=== PATIENT | female | born 1945 | race Caucasian/White ===

== ENCOUNTER 2016-10-19 20:37 | Inpatient (IN) | payer OTHER ==
[~2016-10-19] VITALS: Ht 170.2 cm; Wt 132.9 kg
[2016-10-19] MEDS ORDERED: DUONEB INH ONE ×2 (23:02)
[2016-10-19] MEDS ORDERED: NEB-XOPENEX 0.63 MG/3 ML INH PRN (23:35)
[2016-10-20] VITALS (8 sets, daily range): BP systolic 104–146; RESP 18–24; TEMP 98–99.6; Ht 170.2 cm; Wt 132.9 kg
[2016-10-20] MEDS: METHYLPRED SOD SUCC 125 MG/2 ML VIAL IV SCH ×3 (02:40→15:35)
[2016-10-20] MEDS: ACETAMINOPHEN 325 MG TAB PO PRN ×3 (02:41→21:41)
[2016-10-20] MEDS: DUONEB INH SCH ×6 (02:47→23:17)
[2016-10-20] MEDS: DIAZEPAM 5 MG TAB PO PRN ×2 (03:35→15:41)
[2016-10-20] MEDS: PREGABALIN 75 MG CAP PO SCH ×2 (09:05→20:00)
[2016-10-20] MEDS: CEFTRIAXONE 1 GM in SODIUM CHLORIDE 0.9% 50 ML IV SCH (09:05)
[2016-10-20] MEDS ORDERED: ALBUTEROL IH SCH (10:10)
[2016-10-20] MEDS: ENOXAPARIN 30 MG/0.3 ML SYR SUBQ SCH (10:55)
[2016-10-20] MEDS: AZITHROMYCIN 500 MG in SODIUM CHLORIDE 0.9% 250 ML IV SCH (11:25)
[2016-10-20] MEDS: DULoxetine 30 MG CAP PO SCH (15:35)
[2016-10-20] MEDS: FLUTICASONE 0.05% NA BTL NARE EACH SCH (15:35)
[2016-10-20] MEDS: PANTOPRAZOLE 40 MG TAB PO SCH (15:35)
[2016-10-20] MEDS: LEVOTHYROXINE 0.125 MG TAB PO SCH (15:35)
[2016-10-20] MEDS: CHOLECALCIFEROL 1,000 UNITS TAB PO SCH (15:35)
[2016-10-20] MEDS: CETIRIZINE 10 MG TAB PO SCH (15:35)
[2016-10-20] MEDS: BUPROPION XL 150 MG TAB PO SCH (15:35)
[2016-10-20] MEDS: ALLOPURINOL 100 MG TAB PO SCH (15:35)
[2016-10-20] MEDS: ATENOLOL 50 MG TAB PO SCH (19:59)
[2016-10-20] MEDS: MONTELUKAST 10 MG TAB PO SCH (19:59)
[2016-10-20] MEDS: Ascorbic Acid 500 MG TAB PO SCH (19:59)
[2016-10-20] MEDS: CLOBETASOL 0.05% CREAM 15 GM TOPICAL SCH (20:00)
[2016-10-21] MEDS: METHYLPRED SOD SUCC 125 MG/2 ML VIAL IV SCH ×4 (02:25→21:49)
[2016-10-21] MEDS: ACETAMINOPHEN 325 MG TAB PO PRN ×2 (02:26→07:45)
[2016-10-21] MEDS: DIAZEPAM 5 MG TAB PO PRN ×3 (02:26→21:49)
[2016-10-21] MEDS: DUONEB INH SCH ×6 (03:00→23:03)
[2016-10-21 03:57] VITALS: BP_SYST 136; RESP 16; TEMP 98.6
[2016-10-21] MEDS: PANTOPRAZOLE 40 MG TAB PO SCH (06:03)
[2016-10-21] MEDS: LEVOTHYROXINE 0.125 MG TAB PO SCH (06:04)
[2016-10-21] MEDS ORDERED: LEVOTHYROXINE 0.125 MG TAB PO SCH (07:00)
[2016-10-21] MEDS ORDERED: PANTOPRAZOLE 40 MG TAB PO SCH ×2 (07:00→09:00)
[2016-10-21 07:33] VITALS: BP_SYST 154; RESP 16; TEMP 98.5
[2016-10-21] MEDS: FLUTICASONE 0.05% NA BTL NARE EACH SCH (08:40)
[2016-10-21] MEDS: Ascorbic Acid 500 MG TAB PO SCH ×2 (08:41→21:48)
[2016-10-21] MEDS: CYCLOSPORINE OP SOLN EYE EACH PRN (08:41)
[2016-10-21] MEDS: CHOLECALCIFEROL 1,000 UNITS TAB PO SCH (08:41)
[2016-10-21] MEDS: ATENOLOL 50 MG TAB PO SCH ×2 (08:41→21:47)
[2016-10-21] MEDS: CEFTRIAXONE 1 GM in SODIUM CHLORIDE 0.9% 50 ML IV SCH (08:41)
[2016-10-21] MEDS: CETIRIZINE 10 MG TAB PO SCH (08:42)
[2016-10-21] MEDS: DULoxetine 30 MG CAP PO SCH (08:42)
[2016-10-21] MEDS: ALLOPURINOL 100 MG TAB PO SCH (08:42)
[2016-10-21] MEDS: BUPROPION XL 150 MG TAB PO SCH (08:42)
[2016-10-21] MEDS: ENOXAPARIN 30 MG/0.3 ML SYR SUBQ SCH (08:43)
[2016-10-21] MEDS: PREGABALIN 75 MG CAP PO SCH ×2 (08:44→21:48)
[2016-10-21] MEDS: CLOBETASOL 0.05% CREAM 15 GM TOPICAL SCH ×2 (08:44→21:00)
[2016-10-21] MEDS ORDERED: CHOLECALCIFEROL 1,000 UNITS TAB PO SCH (09:00)
[2016-10-21] MEDS ORDERED: FLUTICASONE 0.05% NA BTL NARE EACH SCH (09:00)
[2016-10-21] MEDS ORDERED: DULoxetine 30 MG CAP PO SCH (09:00)
[2016-10-21] MEDS ORDERED: ALLOPURINOL 100 MG TAB PO SCH (09:00)
[2016-10-21] MEDS ORDERED: BUPROPION XL 150 MG TAB PO SCH (09:00)
[2016-10-21] MEDS ORDERED: CETIRIZINE 10 MG TAB PO SCH (09:00)
[2016-10-21] MEDS: AZITHROMYCIN 500 MG in SODIUM CHLORIDE 0.9% 250 ML IV SCH (09:58)
[2016-10-21 10:56] VITALS: BP_SYST 173; RESP 16; TEMP 98.1
[2016-10-21] MEDS ORDERED: DEXTROSE 50% SYRINGE 50 ML IV PRN (13:20)
[2016-10-21] MEDS ORDERED: GLUCAGON 1 MG VIAL IM PRN (13:20)
[2016-10-21] MEDS ORDERED: PHARMACY TO DOSE VANCOMYCIN IV SCH (13:20)
[2016-10-21] MEDS: LEVEMIR INSULIN SUBQ SCH ×2 (13:26→21:48)
[2016-10-21] MEDS ORDERED: VANCOMYCIN 2,500 MG in SODIUM CHLORIDE 0.9% 500 ML IV STA (13:55)
[2016-10-21 15:23] VITALS: BP_SYST 150; BP_SYST 154; RESP 20; TEMP 98
[2016-10-21] MEDS ORDERED: MISSING DOSE XX ONE ×2 (15:40→20:50)
[2016-10-21 19:20] VITALS: BP_SYST 128; RESP 18; TEMP 97.4
[2016-10-21] MEDS: MONTELUKAST 10 MG TAB PO SCH (21:48)
[2016-10-21 23:20] VITALS: BP_SYST 160; RESP 19; TEMP 97.5
[2016-10-22] VITALS (7 sets, daily range): BP systolic 130–162; RESP 18–20; TEMP 97–98.3
[2016-10-22] MEDS: ACETAMINOPHEN 325 MG TAB PO PRN ×3 (01:17→21:25)
[2016-10-22] MEDS: DUONEB INH SCH ×6 (02:39→23:55)
[2016-10-22] MEDS: VANCOMYCIN 2,000 MG in SODIUM CHLORIDE 0.9% 500 ML IV SCH ×2 (02:42→15:38)
[2016-10-22] MEDS: PANTOPRAZOLE 40 MG TAB PO SCH (06:35)
[2016-10-22] MEDS: LEVOTHYROXINE 0.125 MG TAB PO SCH (06:35)
[2016-10-22] MEDS: PREGABALIN 75 MG CAP PO SCH ×2 (08:59→21:25)
[2016-10-22] MEDS: CHOLECALCIFEROL 1,000 UNITS TAB PO SCH (08:59)
[2016-10-22] MEDS: CYCLOSPORINE OP SOLN EYE EACH PRN (08:59)
[2016-10-22] MEDS: DIAZEPAM 5 MG TAB PO PRN ×2 (08:59→21:25)
[2016-10-22] MEDS: ALLOPURINOL 100 MG TAB PO SCH (08:59)
[2016-10-22] MEDS: DULoxetine 30 MG CAP PO SCH (09:00)
[2016-10-22] MEDS: CETIRIZINE 10 MG TAB PO SCH (09:00)
[2016-10-22] MEDS: LEVEMIR INSULIN SUBQ SCH ×2 (09:01→21:26)
[2016-10-22] MEDS: SALINE FLUSH 10 ML FLUSH SCH ×2 (09:02→21:24)
[2016-10-22] MEDS: BUPROPION XL 150 MG TAB PO SCH (09:03)
[2016-10-22] MEDS: ENOXAPARIN 30 MG/0.3 ML SYR SUBQ SCH (09:03)
[2016-10-22] MEDS: METHYLPRED SOD SUCC 125 MG/2 ML VIAL IV SCH ×2 (09:04→17:42)
[2016-10-22] MEDS: CEFTRIAXONE 1 GM in SODIUM CHLORIDE 0.9% 50 ML IV SCH (09:04)
[2016-10-22] MEDS ORDERED: MISSING DOSE XX ONE (09:20)
[2016-10-22] MEDS: CLOBETASOL 0.05% CREAM 15 GM TOPICAL SCH ×2 (11:17→21:00)
[2016-10-22] MEDS: AZITHROMYCIN 500 MG in SODIUM CHLORIDE 0.9% 250 ML IV SCH (11:37)
[2016-10-22] MEDS: ATENOLOL 50 MG TAB PO SCH ×2 (11:38→21:25)
[2016-10-22] MEDS: FLUTICASONE 0.05% NA BTL NARE EACH SCH (11:38)
[2016-10-22] MEDS: Ascorbic Acid 500 MG TAB PO SCH ×2 (11:38→21:26)
[2016-10-22] MEDS: MONTELUKAST 10 MG TAB PO SCH (21:26)
[2016-10-22] MEDS: Furosemide 40 MG/4 ML VIAL IV SCH (21:38)
[2016-10-22] MEDS: NYSTATIN SUSP FOR CPD 120 ML, DIPHENHYDRAMINE (FOR COMPOUND) 120 ML, HYDROCORT SOD SUC ... SWISH.SWAL SCH ×3 (21:38)
[2016-10-22] MEDS: MICONAZOLE 2% PWD TOPICAL SCH (21:39)
[2016-10-23 02:16] VITALS: BP_SYST 160; RESP 20; TEMP 97.4
[2016-10-23] MEDS: VANCOMYCIN 2,000 MG in SODIUM CHLORIDE 0.9% 500 ML IV SCH ×2 (02:35→15:57)
[2016-10-23] MEDS: DUONEB INH SCH ×6 (03:00→22:43)
[2016-10-23] MEDS: LEVOTHYROXINE 0.125 MG TAB PO SCH (06:50)
[2016-10-23] MEDS: SODIUM CHLORIDE 0.9% FLUSH BAG 500 ML IV SCH (06:50)
[2016-10-23] MEDS: PANTOPRAZOLE 40 MG TAB PO SCH (06:50)
[2016-10-23 07:27] VITALS: BP_SYST 158; RESP 18; TEMP 97.6
[2016-10-23] MEDS ORDERED: METHYLPRED SOD SUCC 125 MG/2 ML VIAL IV SCH (09:00)
[2016-10-23] MEDS: SALINE FLUSH 10 ML FLUSH SCH ×2 (09:45→21:52)
[2016-10-23] MEDS: CEFTRIAXONE 1 GM in SODIUM CHLORIDE 0.9% 50 ML IV SCH (09:46)
[2016-10-23] MEDS: PREGABALIN 75 MG CAP PO SCH ×2 (09:47→21:51)
[2016-10-23] MEDS: Ascorbic Acid 500 MG TAB PO SCH ×2 (09:47→21:51)
[2016-10-23] MEDS: ALLOPURINOL 100 MG TAB PO SCH (09:48)
[2016-10-23] MEDS: CETIRIZINE 10 MG TAB PO SCH (09:48)
[2016-10-23] MEDS: DULoxetine 30 MG CAP PO SCH (09:48)
[2016-10-23] MEDS: BUPROPION XL 150 MG TAB PO SCH (09:48)
[2016-10-23] MEDS: Furosemide 40 MG/4 ML VIAL IV SCH (09:49)
[2016-10-23] MEDS: DIAZEPAM 5 MG TAB PO PRN ×2 (09:49→21:51)
[2016-10-23] MEDS: ATENOLOL 50 MG TAB PO SCH ×2 (09:50→21:51)
[2016-10-23] MEDS: LEVEMIR INSULIN SUBQ SCH ×2 (09:53→21:51)
[2016-10-23] MEDS: MICONAZOLE 2% PWD TOPICAL SCH ×2 (09:55→21:52)
[2016-10-23] MEDS: CLOBETASOL 0.05% CREAM 15 GM TOPICAL SCH ×2 (09:55→21:52)
[2016-10-23] MEDS: CHOLECALCIFEROL 1,000 UNITS TAB PO SCH (09:55)
[2016-10-23] MEDS: ENOXAPARIN 30 MG/0.3 ML SYR SUBQ SCH (09:57)
[2016-10-23] MEDS: FLUTICASONE 0.05% NA BTL NARE EACH SCH (09:58)
[2016-10-23] MEDS: NYSTATIN SUSP FOR CPD 120 ML, DIPHENHYDRAMINE (FOR COMPOUND) 120 ML, HYDROCORT SOD SUC ... SWISH.SWAL SCH ×12 (10:06→21:49)
[2016-10-23 12:06] VITALS: BP_SYST 128; RESP 18; TEMP 97.8
[2016-10-23 15:35] VITALS: BP_SYST 146; RESP 20; TEMP 97.9
[2016-10-23 19:42] VITALS: BP_SYST 128; RESP 20; TEMP 98.8
[2016-10-23] MEDS: ACETAMINOPHEN 325 MG TAB PO PRN (21:51)
[2016-10-23] MEDS: MONTELUKAST 10 MG TAB PO SCH (21:51)
[2016-10-23 22:55] VITALS: BP_SYST 160; RESP 20; TEMP 98.4
[2016-10-24] MEDS: DUONEB INH SCH ×6 (02:57→23:11)
[2016-10-24 04:18] VITALS: BP_SYST 154; RESP 20; TEMP 98.2
[2016-10-24] MEDS: PANTOPRAZOLE 40 MG TAB PO SCH (06:11)
[2016-10-24] MEDS: LEVOTHYROXINE 0.125 MG TAB PO SCH (06:12)
[2016-10-24] MEDS: SODIUM CHLORIDE 0.9% FLUSH BAG 500 ML IV SCH (06:12)
[2016-10-24] MEDS: CEFTRIAXONE 1 GM in SODIUM CHLORIDE 0.9% 50 ML IV SCH (08:06)
[2016-10-24] MEDS: Furosemide 40 MG/4 ML VIAL IV SCH (08:06)
[2016-10-24] MEDS: SALINE FLUSH 10 ML FLUSH SCH ×2 (08:06→20:40)
[2016-10-24] MEDS: FLUTICASONE 0.05% NA BTL NARE EACH SCH (08:07)
[2016-10-24] MEDS: DULoxetine 30 MG CAP PO SCH (08:07)
[2016-10-24] MEDS: ENOXAPARIN 30 MG/0.3 ML SYR SUBQ SCH (08:07)
[2016-10-24] MEDS: PREGABALIN 75 MG CAP PO SCH ×2 (08:08→20:40)
[2016-10-24] MEDS: Ascorbic Acid 500 MG TAB PO SCH ×2 (08:08→20:42)
[2016-10-24] MEDS: BUPROPION XL 150 MG TAB PO SCH (08:08)
[2016-10-24] MEDS: CHOLECALCIFEROL 1,000 UNITS TAB PO SCH (08:08)
[2016-10-24] MEDS: ALLOPURINOL 100 MG TAB PO SCH (08:08)
[2016-10-24] MEDS: MICONAZOLE 2% PWD TOPICAL SCH ×2 (08:09→20:43)
[2016-10-24 08:28] VITALS: BP_SYST 120; RESP 18; TEMP 97.1
[2016-10-24] MEDS: DIAZEPAM 5 MG TAB PO PRN ×2 (08:52→20:43)
[2016-10-24] MEDS: LEVEMIR INSULIN SUBQ SCH ×2 (08:53→20:44)
[2016-10-24] MEDS: NYSTATIN SUSP FOR CPD 120 ML, DIPHENHYDRAMINE (FOR COMPOUND) 120 ML, HYDROCORT SOD SUC ... SWISH.SWAL SCH ×12 (09:00→20:42)
[2016-10-24] MEDS ORDERED: MISSING DOSE XX ONE (10:35)
[2016-10-24] MEDS: ATENOLOL 50 MG TAB PO SCH ×2 (11:01→20:42)
[2016-10-24] MEDS: CETIRIZINE 10 MG TAB PO SCH (11:01)
[2016-10-24] MEDS: CLOBETASOL 0.05% CREAM 15 GM TOPICAL SCH ×2 (11:03→20:43)
[2016-10-24] MEDS: METHYLPRED SOD SUCC 40 MG VIAL IV SCH (11:03)
[2016-10-24 12:16] VITALS: BP_SYST 119; RESP 18; TEMP 98.5
[2016-10-24] MEDS: ACETAMINOPHEN 325 MG TAB PO PRN (16:03)
[2016-10-24 16:14] VITALS: BP_SYST 130; RESP 18; TEMP 97.3
[2016-10-24] MEDS: VANCOMYCIN 1,000 MG in SODIUM CHLORIDE 0.9% 250 ML IV SCH (17:36)
[2016-10-24] MEDS: KCL CR 8 MEQ TAB PO SCH ×2 (18:54→20:42)
[2016-10-24 20:22] VITALS: BP_SYST 138; RESP 18; TEMP 97.7
[2016-10-24] MEDS: MONTELUKAST 10 MG TAB PO SCH (20:40)
[2016-10-24 23:56] VITALS: BP_SYST 130; RESP 18; TEMP 97
[2016-10-25] MEDS: DUONEB INH SCH ×6 (02:29→22:40)
[2016-10-25 03:07] VITALS: BP_SYST 142; RESP 18; TEMP 94
[2016-10-25] MEDS ORDERED: VANCOMYCIN 1,000 MG in SODIUM CHLORIDE 0.9% 250 ML IV SCH (05:00)
[2016-10-25] MEDS: VANCOMYCIN 1,000 MG in SODIUM CHLORIDE 0.9% 250 ML IV SCH ×2 (05:55→18:12)
[2016-10-25] MEDS: SODIUM CHLORIDE 0.9% FLUSH BAG 500 ML IV SCH (05:55)
[2016-10-25] MEDS: PANTOPRAZOLE 40 MG TAB PO SCH (05:56)
[2016-10-25] MEDS: LEVOTHYROXINE 0.125 MG TAB PO SCH (05:56)
[2016-10-25] MEDS: SALINE FLUSH 10 ML FLUSH SCH ×2 (08:00→21:23)
[2016-10-25 08:19] VITALS: BP_SYST 132; RESP 18; TEMP 97.6
[2016-10-25] MEDS ORDERED: LEVEMIR INSULIN SUBQ SCH (09:00)
[2016-10-25] MEDS: METHYLPRED SOD SUCC 40 MG VIAL IV SCH (09:00)
[2016-10-25] MEDS: DULoxetine 30 MG CAP PO SCH (10:29)
[2016-10-25] MEDS: ATENOLOL 50 MG TAB PO SCH ×2 (10:30→21:19)
[2016-10-25] MEDS: PREGABALIN 75 MG CAP PO SCH ×2 (10:30→21:19)
[2016-10-25] MEDS: BUPROPION XL 150 MG TAB PO SCH (10:30)
[2016-10-25] MEDS: FLUTICASONE 0.05% NA BTL NARE EACH SCH (10:30)
[2016-10-25] MEDS: PREDNISONE 20 MG TAB PO SCH (10:30)
[2016-10-25] MEDS: NYSTATIN SUSP FOR CPD 120 ML, DIPHENHYDRAMINE (FOR COMPOUND) 120 ML, HYDROCORT SOD SUC ... SWISH.SWAL SCH ×12 (10:31→21:19)
[2016-10-25] MEDS: ENOXAPARIN 30 MG/0.3 ML SYR SUBQ SCH (10:31)
[2016-10-25] MEDS: CLOBETASOL 0.05% CREAM 15 GM TOPICAL SCH ×2 (10:31→21:00)
[2016-10-25] MEDS: MICONAZOLE 2% PWD TOPICAL SCH ×2 (10:31→21:00)
[2016-10-25 11:19] VITALS: BP_SYST 136; RESP 18; TEMP 97.6
[2016-10-25] MEDS: DIAZEPAM 5 MG TAB PO PRN ×2 (11:27→21:38)
[2016-10-25] MEDS: ACETAMINOPHEN 325 MG TAB PO PRN ×2 (11:27→21:39)
[2016-10-25 16:30] VITALS: BP_SYST 128; RESP 18; TEMP 97.8
[2016-10-25 20:08] VITALS: BP_SYST 118; RESP 20; TEMP 97.9
[2016-10-25] MEDS: MONTELUKAST 10 MG TAB PO SCH (21:19)
[2016-10-25 23:43] VITALS: BP_SYST 160; RESP 20; TEMP 98
[2016-10-26 02:26] VITALS: BP_SYST 160; RESP 20; TEMP 98.1
[2016-10-26] MEDS: DUONEB INH SCH ×6 (03:14→22:58)
[2016-10-26] MEDS: SODIUM CHLORIDE 0.9% FLUSH BAG 500 ML IV SCH (03:35)
[2016-10-26] MEDS: PANTOPRAZOLE 40 MG TAB PO SCH (05:00)
[2016-10-26] MEDS: LEVOTHYROXINE 0.125 MG TAB PO SCH (05:00)
[2016-10-26] MEDS: VANCOMYCIN 1,000 MG in SODIUM CHLORIDE 0.9% 250 ML IV SCH (06:19)
[2016-10-26 07:28] VITALS: BP_SYST 116; RESP 20; TEMP 96.7
[2016-10-26] MEDS ORDERED: PREDNISONE 20 MG TAB PO SCH (09:00)
[2016-10-26] MEDS: SALINE FLUSH 10 ML FLUSH SCH ×2 (10:04→20:22)
[2016-10-26] MEDS: DULoxetine 30 MG CAP PO SCH (10:05)
[2016-10-26] MEDS: PREDNISONE 20 MG TAB PO SCH (10:05)
[2016-10-26] MEDS: ATENOLOL 50 MG TAB PO SCH ×2 (10:05→20:22)
[2016-10-26] MEDS: ENOXAPARIN 30 MG/0.3 ML SYR SUBQ SCH (10:05)
[2016-10-26] MEDS: BUPROPION XL 150 MG TAB PO SCH (10:05)
[2016-10-26] MEDS: MICONAZOLE 2% PWD TOPICAL SCH ×2 (10:06→20:24)
[2016-10-26] MEDS: PREGABALIN 75 MG CAP PO SCH ×2 (10:06→20:22)
[2016-10-26] MEDS: FLUTICASONE 0.05% NA BTL NARE EACH SCH (10:06)
[2016-10-26] MEDS: NYSTATIN SUSP FOR CPD 120 ML, DIPHENHYDRAMINE (FOR COMPOUND) 120 ML, HYDROCORT SOD SUC ... SWISH.SWAL SCH ×12 (10:06→20:24)
[2016-10-26] MEDS: CLOBETASOL 0.05% CREAM 15 GM TOPICAL SCH ×2 (10:06→20:23)
[2016-10-26] MEDS: DIAZEPAM 5 MG TAB PO PRN ×2 (10:10→20:23)
[2016-10-26 10:54] VITALS: BP_SYST 130; RESP 18; TEMP 97.9
[2016-10-26] MEDS: SODIUM CHLORIDE 0.9% 1,000 ML IV SCH (16:10)
[2016-10-26 16:17] VITALS: BP_SYST 134; RESP 18; TEMP 98.3
[2016-10-26 19:40] VITALS: BP_SYST 118; RESP 18; TEMP 97.3
[2016-10-26] MEDS: MONTELUKAST 10 MG TAB PO SCH (20:22)
[2016-10-26 23:18] VITALS: BP_SYST 128; RESP 18; TEMP 97.9
[2016-10-27 02:38] VITALS: BP_SYST 138; RESP 18; TEMP 97.8
[2016-10-27] MEDS: DUONEB INH SCH ×6 (03:03→22:46)
[2016-10-27] MEDS ORDERED: MISSING DOSE XX ONE (03:55)
[2016-10-27] MEDS: PANTOPRAZOLE 40 MG TAB PO SCH (05:47)
[2016-10-27] MEDS: LEVOTHYROXINE 0.125 MG TAB PO SCH (05:47)
[2016-10-27] MEDS: SODIUM CHLORIDE 0.9% 1,000 ML IV SCH (05:48)
[2016-10-27] MEDS: SODIUM CHLORIDE 0.9% FLUSH BAG 500 ML IV SCH (05:49)
[2016-10-27 07:58] VITALS: BP_SYST 130; RESP 16; TEMP 97.5
[2016-10-27] MEDS ORDERED: PREDNISONE 20 MG TAB PO SCH (09:00)
[2016-10-27] MEDS: CLOBETASOL 0.05% CREAM 15 GM TOPICAL SCH ×2 (09:00→20:38)
[2016-10-27] MEDS ORDERED: VANCOMYCIN 1,000 MG in SODIUM CHLORIDE 0.9% 250 ML IV SCH (09:00)
[2016-10-27] MEDS: SALINE FLUSH 10 ML FLUSH SCH ×2 (09:12→20:39)
[2016-10-27] MEDS: FLUTICASONE 0.05% NA BTL NARE EACH SCH (09:16)
[2016-10-27] MEDS: BUPROPION XL 150 MG TAB PO SCH (09:16)
[2016-10-27] MEDS: PREGABALIN 75 MG CAP PO SCH ×2 (09:16→20:40)
[2016-10-27] MEDS: DULoxetine 30 MG CAP PO SCH (09:16)
[2016-10-27] MEDS: ATENOLOL 50 MG TAB PO SCH ×2 (09:17→20:40)
[2016-10-27] MEDS: ENOXAPARIN 30 MG/0.3 ML SYR SUBQ SCH (09:18)
[2016-10-27] MEDS: NYSTATIN SUSP FOR CPD 120 ML, DIPHENHYDRAMINE (FOR COMPOUND) 120 ML, HYDROCORT SOD SUC ... SWISH.SWAL SCH ×12 (09:19→20:40)
[2016-10-27] MEDS: MICONAZOLE 2% PWD TOPICAL SCH ×2 (09:32→20:41)
[2016-10-27 11:45] VITALS: BP_SYST 128; RESP 20; TEMP 96
[2016-10-27] MEDS: DIAZEPAM 5 MG TAB PO PRN ×2 (12:31→20:39)
[2016-10-27 15:31] VITALS: BP_SYST 118; RESP 70; TEMP 97.4
[2016-10-27 19:37] VITALS: BP_SYST 106; RESP 18; TEMP 98.4
[2016-10-27] MEDS: MONTELUKAST 10 MG TAB PO SCH (20:39)
[2016-10-27 23:29] VITALS: BP_SYST 118; RESP 18; TEMP 97.4
[2016-10-28] MEDS: DUONEB INH SCH ×6 (02:27→23:09)
[2016-10-28 04:27] VITALS: BP_SYST 138; RESP 18; TEMP 96.8
[2016-10-28] MEDS: PANTOPRAZOLE 40 MG TAB PO SCH (05:54)
[2016-10-28] MEDS: LEVOTHYROXINE 0.125 MG TAB PO SCH (05:54)
[2016-10-28] MEDS: SODIUM CHLORIDE 0.9% FLUSH BAG 500 ML IV SCH (05:54)
[2016-10-28 08:17] VITALS: BP_SYST 124; RESP 20; TEMP 97.3
[2016-10-28] MEDS: DULoxetine 30 MG CAP PO SCH (08:51)
[2016-10-28] MEDS: FLUTICASONE 0.05% NA BTL NARE EACH SCH (08:51)
[2016-10-28] MEDS: BUPROPION XL 150 MG TAB PO SCH (08:52)
[2016-10-28] MEDS: PREGABALIN 75 MG CAP PO SCH ×2 (08:52→21:20)
[2016-10-28] MEDS: ATENOLOL 50 MG TAB PO SCH ×2 (08:52→21:20)
[2016-10-28] MEDS: PREDNISONE 10 MG TAB PO SCH (08:52)
[2016-10-28] MEDS: NYSTATIN SUSP FOR CPD 120 ML, DIPHENHYDRAMINE (FOR COMPOUND) 120 ML, HYDROCORT SOD SUC ... SWISH.SWAL SCH ×12 (08:53→21:00)
[2016-10-28] MEDS: ENOXAPARIN 30 MG/0.3 ML SYR SUBQ SCH (08:53)
[2016-10-28] MEDS: MICONAZOLE 2% PWD TOPICAL SCH ×2 (08:53→21:00)
[2016-10-28] MEDS: CLOBETASOL 0.05% CREAM 15 GM TOPICAL SCH ×2 (08:54→21:00)
[2016-10-28] MEDS: ACETAMINOPHEN 325 MG TAB PO PRN (10:43)
[2016-10-28] MEDS: DIAZEPAM 5 MG TAB PO PRN (10:44)
[2016-10-28 10:48] VITALS: BP_SYST 110; RESP 20; TEMP 97.6
[2016-10-28] MEDS: SALINE FLUSH 10 ML FLUSH SCH ×2 (12:58→21:21)
[2016-10-28] MEDS: VANCOMYCIN 1,000 MG in SODIUM CHLORIDE 0.9% 250 ML IV SCH (13:03)
[2016-10-28 16:04] VITALS: BP_SYST 118; RESP 16; TEMP 97.2
[2016-10-28 20:59] VITALS: BP_SYST 128; RESP 20; TEMP 97.7
[2016-10-28] MEDS: MONTELUKAST 10 MG TAB PO SCH (21:19)
[2016-10-28 23:59] VITALS: BP_SYST 124; RESP 18; TEMP 97.4
[2016-10-29] MEDS: DIAZEPAM 5 MG TAB PO PRN ×2 (00:05→08:33)
[2016-10-29] MEDS: DUONEB INH SCH ×6 (02:40→22:47)
[2016-10-29 03:56] VITALS: BP_SYST 130; RESP 16; TEMP 97.8
[2016-10-29] MEDS: PANTOPRAZOLE 40 MG TAB PO SCH (06:17)
[2016-10-29] MEDS: LEVOTHYROXINE 0.125 MG TAB PO SCH (06:17)
[2016-10-29] MEDS: SODIUM CHLORIDE 0.9% FLUSH BAG 500 ML IV SCH (06:17)
[2016-10-29] MEDS: BUPROPION XL 150 MG TAB PO SCH (08:21)
[2016-10-29] MEDS: PREDNISONE 10 MG TAB PO SCH (08:21)
[2016-10-29] MEDS: ATENOLOL 50 MG TAB PO SCH ×2 (08:22→20:58)
[2016-10-29] MEDS: ENOXAPARIN 30 MG/0.3 ML SYR SUBQ SCH (08:22)
[2016-10-29] MEDS: DULoxetine 30 MG CAP PO SCH (08:22)
[2016-10-29] MEDS: PREGABALIN 75 MG CAP PO SCH ×2 (08:22→20:58)
[2016-10-29] MEDS: NYSTATIN SUSP FOR CPD 120 ML, DIPHENHYDRAMINE (FOR COMPOUND) 120 ML, HYDROCORT SOD SUC ... SWISH.SWAL SCH ×12 (08:23→20:59)
[2016-10-29] MEDS: MICONAZOLE 2% PWD TOPICAL SCH ×2 (08:23→21:00)
[2016-10-29] MEDS: CLOBETASOL 0.05% CREAM 15 GM TOPICAL SCH ×2 (08:24→21:00)
[2016-10-29] MEDS: SALINE FLUSH 10 ML FLUSH SCH ×2 (08:25→20:58)
[2016-10-29] MEDS: FLUTICASONE 0.05% NA BTL NARE EACH SCH (08:25)
[2016-10-29 08:29] VITALS: BP_SYST 150; RESP 20; TEMP 97.3
[2016-10-29 12:22] VITALS: BP_SYST 130; RESP 20; TEMP 98
[2016-10-29] MEDS: VANCOMYCIN 1,000 MG in SODIUM CHLORIDE 0.9% 250 ML IV SCH (13:18)
[2016-10-29 16:41] VITALS: BP_SYST 105; RESP 20; TEMP 97.9
[2016-10-29 20:14] VITALS: BP_SYST 110; RESP 20; TEMP 97.6
[2016-10-29] MEDS: MONTELUKAST 10 MG TAB PO SCH (20:56)
[2016-10-30 00:58] VITALS: BP_SYST 124; RESP 20; TEMP 97.3
[2016-10-30] MEDS: DUONEB INH SCH ×5 (03:22→19:30)
[2016-10-30 04:38] VITALS: BP_SYST 118; RESP 20; TEMP 96
[2016-10-30] MEDS: ACETAMINOPHEN 325 MG TAB PO PRN ×2 (04:42→16:54)
[2016-10-30] MEDS: LEVOTHYROXINE 0.125 MG TAB PO SCH (06:21)
[2016-10-30] MEDS: SODIUM CHLORIDE 0.9% FLUSH BAG 500 ML IV SCH (06:21)
[2016-10-30] MEDS: PANTOPRAZOLE 40 MG TAB PO SCH (06:21)
[2016-10-30 07:58] VITALS: BP_SYST 122; RESP 20; TEMP 97.6
[2016-10-30] MEDS: MICONAZOLE 2% PWD TOPICAL SCH ×2 (09:00→20:59)
[2016-10-30] MEDS: CLOBETASOL 0.05% CREAM 15 GM TOPICAL SCH ×2 (09:00→20:59)
[2016-10-30] MEDS: PREGABALIN 75 MG CAP PO SCH ×2 (09:52→20:58)
[2016-10-30] MEDS: ATENOLOL 50 MG TAB PO SCH ×2 (09:52→20:58)
[2016-10-30] MEDS: DULoxetine 30 MG CAP PO SCH (09:52)
[2016-10-30] MEDS: BUPROPION XL 150 MG TAB PO SCH (09:52)
[2016-10-30] MEDS: PREDNISONE 10 MG TAB PO SCH (09:52)
[2016-10-30] MEDS: SALINE FLUSH 10 ML FLUSH SCH ×2 (09:53→21:03)
[2016-10-30] MEDS: ENOXAPARIN 30 MG/0.3 ML SYR SUBQ SCH (09:56)
[2016-10-30] MEDS: FLUTICASONE 0.05% NA BTL NARE EACH SCH (09:58)
[2016-10-30] MEDS: NYSTATIN SUSP FOR CPD 120 ML, DIPHENHYDRAMINE (FOR COMPOUND) 120 ML, HYDROCORT SOD SUC ... SWISH.SWAL SCH ×12 (09:58→20:59)
[2016-10-30] MEDS: DIAZEPAM 5 MG TAB PO PRN (10:02)
[2016-10-30 11:36] VITALS: BP_SYST 115; RESP 20; TEMP 97
[2016-10-30] MEDS: VANCOMYCIN 1,000 MG in SODIUM CHLORIDE 0.9% 250 ML IV SCH (13:31)
[2016-10-30 16:31] VITALS: BP_SYST 123; RESP 20; TEMP 97.7
[2016-10-30] MEDS: SALINE FLUSH 10 ML FLUSH PRN (16:54)
[2016-10-30 20:49] VITALS: BP_SYST 112; RESP 20; TEMP 97.6
[2016-10-30] MEDS: DIAZEPAM 5 MG TAB PO SCH (20:58)
[2016-10-30] MEDS: MONTELUKAST 10 MG TAB PO SCH (20:58)
[2016-10-31 00:43] VITALS: BP_SYST 120; RESP 20; TEMP 97.8
[2016-10-31 03:45] VITALS: BP_SYST 124; RESP 20; TEMP 98
[2016-10-31] MEDS: SODIUM CHLORIDE 0.9% FLUSH BAG 500 ML IV SCH (05:57)
[2016-10-31] MEDS: PANTOPRAZOLE 40 MG TAB PO SCH (06:10)
[2016-10-31] MEDS: DUONEB INH SCH ×5 (06:20→23:16)
[2016-10-31] MEDS: LEVOTHYROXINE 0.125 MG TAB PO SCH (06:56)
[2016-10-31 07:34] VITALS: BP_SYST 118; RESP 18; TEMP 97.8
[2016-10-31] MEDS: MICONAZOLE 2% PWD TOPICAL SCH ×2 (09:00→21:03)
[2016-10-31] MEDS: CLOBETASOL 0.05% CREAM 15 GM TOPICAL SCH ×2 (09:00→21:04)
[2016-10-31] MEDS: FLUTICASONE 0.05% NA BTL NARE EACH SCH (10:13)
[2016-10-31] MEDS: SALINE FLUSH 10 ML FLUSH SCH ×2 (10:13→21:02)
[2016-10-31] MEDS: DULoxetine 30 MG CAP PO SCH (10:14)
[2016-10-31] MEDS: ENOXAPARIN 30 MG/0.3 ML SYR SUBQ SCH (10:14)
[2016-10-31] MEDS: BUPROPION XL 150 MG TAB PO SCH (10:14)
[2016-10-31] MEDS: PREDNISONE 5 MG TAB PO SCH (10:15)
[2016-10-31] MEDS: PREGABALIN 75 MG CAP PO SCH ×2 (10:15→21:03)
[2016-10-31] MEDS: DIAZEPAM 5 MG TAB PO SCH ×2 (10:15→21:02)
[2016-10-31] MEDS: ATENOLOL 50 MG TAB PO SCH ×2 (10:15→21:07)
[2016-10-31] MEDS: NYSTATIN SUSP FOR CPD 120 ML, DIPHENHYDRAMINE (FOR COMPOUND) 120 ML, HYDROCORT SOD SUC ... SWISH.SWAL SCH ×12 (10:15→21:04)
[2016-10-31] MEDS: ACETAMINOPHEN 325 MG TAB PO PRN (10:17)
[2016-10-31 10:41] VITALS: BP_SYST 126; RESP 16; TEMP 97.6
[2016-10-31] MEDS: VANCOMYCIN 1,000 MG in SODIUM CHLORIDE 0.9% 250 ML IV SCH (13:21)
[2016-10-31] MEDS: SALINE FLUSH 10 ML FLUSH PRN (13:21)
[2016-10-31 15:21] VITALS: BP_SYST 118; RESP 20; TEMP 97.6
[2016-10-31] MEDS ORDERED: MISSING DOSE XX ONE (15:35)
[2016-10-31 19:55] VITALS: BP_SYST 110; RESP 18; TEMP 98.3
[2016-10-31] MEDS: MONTELUKAST 10 MG TAB PO SCH (21:03)
[2016-11-01 00:31] VITALS: BP_SYST 120; RESP 18; TEMP 98.1
[2016-11-01 05:02] VITALS: BP_SYST 112; RESP 20; TEMP 98.3
[2016-11-01] MEDS: LEVOTHYROXINE 0.125 MG TAB PO SCH (06:14)
[2016-11-01] MEDS: SODIUM CHLORIDE 0.9% FLUSH BAG 500 ML IV SCH (06:14)
[2016-11-01] MEDS: PANTOPRAZOLE 40 MG TAB PO SCH (06:14)
[2016-11-01] MEDS: DUONEB INH SCH ×3 (06:41→22:40)
[2016-11-01 07:43] VITALS: BP_SYST 118; RESP 18; TEMP 98.4
[2016-11-01] MEDS: DULoxetine 30 MG CAP PO SCH (10:35)
[2016-11-01] MEDS: ATENOLOL 50 MG TAB PO SCH ×2 (10:36→21:10)
[2016-11-01] MEDS: FLUTICASONE 0.05% NA BTL NARE EACH SCH (10:36)
[2016-11-01] MEDS: BUPROPION XL 150 MG TAB PO SCH (10:36)
[2016-11-01] MEDS: SALINE FLUSH 10 ML FLUSH SCH ×2 (10:36→21:10)
[2016-11-01] MEDS: DIAZEPAM 5 MG TAB PO SCH ×2 (10:36→21:10)
[2016-11-01] MEDS: PREDNISONE 5 MG TAB PO SCH (10:36)
[2016-11-01] MEDS: PREGABALIN 75 MG CAP PO SCH ×2 (10:36→21:10)
[2016-11-01] MEDS: ENOXAPARIN 30 MG/0.3 ML SYR SUBQ SCH (10:37)
[2016-11-01] MEDS: NYSTATIN SUSP FOR CPD 120 ML, DIPHENHYDRAMINE (FOR COMPOUND) 120 ML, HYDROCORT SOD SUC ... SWISH.SWAL SCH ×12 (10:37→21:12)
[2016-11-01] MEDS: CLOBETASOL 0.05% CREAM 15 GM TOPICAL SCH ×2 (10:38→21:12)
[2016-11-01] MEDS: MICONAZOLE 2% PWD TOPICAL SCH ×2 (10:38→21:12)
[2016-11-01 11:14] VITALS: BP_SYST 128; RESP 18; TEMP 97.6
[2016-11-01] MEDS: VANCOMYCIN 1,000 MG in SODIUM CHLORIDE 0.9% 250 ML IV SCH (12:44)
[2016-11-01] MEDS: SALINE FLUSH 10 ML FLUSH PRN (12:45)
[2016-11-01 16:05] VITALS: BP_SYST 128; RESP 18; TEMP 98.6
[2016-11-01 20:31] VITALS: BP_SYST 112; RESP 18; TEMP 98.1
[2016-11-01] MEDS: MONTELUKAST 10 MG TAB PO SCH (21:10)
[2016-11-02] VITALS (8 sets, daily range): BP systolic 114–126; RESP 16–20; TEMP 97.3–98.5
[2016-11-02] MEDS: ACETAMINOPHEN 325 MG TAB PO PRN ×2 (03:29→09:05)
[2016-11-02] MEDS: SODIUM CHLORIDE 0.9% FLUSH BAG 500 ML IV SCH (06:18)
[2016-11-02] MEDS: PANTOPRAZOLE 40 MG TAB PO SCH (06:18)
[2016-11-02] MEDS: LEVOTHYROXINE 0.125 MG TAB PO SCH (06:18)
[2016-11-02] MEDS: DUONEB INH SCH ×2 (07:34→14:48)
[2016-11-02] MEDS: ATENOLOL 50 MG TAB PO SCH (08:54)
[2016-11-02] MEDS: BUPROPION XL 150 MG TAB PO SCH (08:54)
[2016-11-02] MEDS: DULoxetine 30 MG CAP PO SCH (08:54)
[2016-11-02] MEDS: FLUTICASONE 0.05% NA BTL NARE EACH SCH (08:54)
[2016-11-02] MEDS: DIAZEPAM 5 MG TAB PO SCH (08:54)
[2016-11-02] MEDS: PREGABALIN 75 MG CAP PO SCH (08:54)
[2016-11-02] MEDS: SALINE FLUSH 10 ML FLUSH SCH (08:55)
[2016-11-02] MEDS: MICONAZOLE 2% PWD TOPICAL SCH (08:58)
[2016-11-02] MEDS: ENOXAPARIN 30 MG/0.3 ML SYR SUBQ SCH (08:58)
[2016-11-02] MEDS: NYSTATIN SUSP FOR CPD 120 ML, DIPHENHYDRAMINE (FOR COMPOUND) 120 ML, HYDROCORT SOD SUC ... SWISH.SWAL SCH ×6 (08:58→12:50)
[2016-11-02] MEDS: CLOBETASOL 0.05% CREAM 15 GM TOPICAL SCH (08:59)
[2016-11-02] MEDS: VANCOMYCIN 1,000 MG in SODIUM CHLORIDE 0.9% 250 ML IV SCH (12:44)
== END 2016-11-02 14:56 | disposition home or self-care (01) | DRG 190 ==
LOC: ENRESERVTM → ENRESERV → ENRESERVDT → ER 20:37 → ENPENDDIS 23:00 → EMR 23:00 → PCU2 10-20 01:11 → 4NT 10-21 14:41
PROVIDERS: ADMIT Internal Medicine; ATTEND Internal Medicine
DX: J44.0 Chronic obstructive pulmonary disease with (acute) lower respiratory infection (principal); I50.33 Acute on chronic diastolic (congestive) heart failure; J15.212 Pneumonia due to Methicillin resistant Staphylococcus aureus; N18.3 Chronic kidney disease, stage 3 (moderate); I13.0 Hypertensive heart and chronic kidney disease with heart failure and stage 1 through stage 4 chronic kidney disease, or unspecified chronic kidney disease; E87.1 Hypo-osmolality and hyponatremia; J44.1 Chronic obstructive pulmonary disease with (acute) exacerbation; E09.9 Drug or chemical induced diabetes mellitus without complications; T38.0X5A Adverse effect of glucocorticoids and synthetic analogues, initial encounter; E66.01 Morbid (severe) obesity due to excess calories; F41.9 Anxiety disorder, unspecified; E03.9 Hypothyroidism, unspecified; E78.5 Hyperlipidemia, unspecified; I10 Essential (primary) hypertension; Z86.718 Personal history of other venous thrombosis and embolism
CPT/HCPCS: 36415; 36600; 71010; 71020; 80048; 80053; 80202; 82306; 82553; 82565; 82607; 82746; 82803; 82947; 83735; 83880; 84439; 84443; 84484; 84520; 85025; 87071; 87077; 87186; 87804; 93005; 94640; 94799